=== PATIENT | female | born 1955 | race Caucasian/White ===

== ENCOUNTER 2017-12-19 17:46 | Emergency (ER) | payer OTHER, SELFPAY ==
[2017-12-19 17:48] VITALS: BP 150/56; PULSE 69; RESP 16; TEMP 36.4; O2SAT 96; BMI 38.2
--- NOTE | 2017-12-19 18:30 | RAD_ITS ---
STUDY: X-RAY - RIGHT KNEE REASON FOR EXAM: Female, 62 years old. Pain. Fall. TECHNIQUE: 4 view(s) of the knee. COMPARISON: None. FINDINGS: Normal visualized distal femur. Normal visualized proximal tibia and fibula. Normal proximal tibiofibular articulation. There is no demonstrated fracture. Normal medial femorotibial compartment. Normal lateral femorotibial compartment. There is mild degenerative arthrosis of the patellofemoral articulation. There is no demonstrated joint effusion. The soft tissue structures are unremarkable. RAD/Knee 4 or More Views IMPRESSION: No acute fracture or dislocation. Mild patellofemoral degenerative changes. Electronically Signed: Santhosh Richmond MD at 19:23 EST , Service support ,
--- NOTE | 2017-12-19 18:58 | ED.VISSUMM ---
- ER Visit Summary Date of Service: 12/19/17 Chief Complaint: Right knee pain and injury History of Present Illness: The patient is a 62 F who missed step and fell down landing with her right knee side bent behind her. She notes pain of the lateral aspect of the knee. She has been able to ambulate. She denies any other injuries. She has a history of Yefri-Danlos syndrome. Physical Examination: Afebrile vital signs are stable Gen: Well-nourished well-developed obese Head: Normocephalic atraumatic Eyes: Perrl EOMI ENT: TMs clear no rhinorrhea moist mucous membranes Neck: Supple no lymphadenopathy no JVD nontender CVS: Regular rate rhythm no murmurs normal S1-S2 Respiratory: No distress clear to auscultation bilaterally chest nontender Abdomen: Soft nontender nondistended normal bowel sounds no masses Back: Nontender Extremity: Patient is tenderness palpation of the lateral aspect of the knee. Ligaments appear stable bilaterally. There is no effusion. Extensor mechanism is intact. Negative grind test. Skin: Normal color no rash Neuro: alert orientated ?3 CN II-XII intact normal strength sensation reflexes gait cerebellar Psych: Normal affect normal mood Test Results: 4 view knee films were negative for fracture Emergency Department Course and Treatment: Patient be discharged home with supportive care. Timoteo wrap as needed. Follow-up 10-14 days if not improved Impression: 1. Right knee ligamentous sprain This note was generated with [employer] dictation software. It may contain incorrect words, spelling, and punctuation that were not noted in review of the chart prior to signing ED Disposition - Plan for ED Patient: Disposition: Home or Assisted Living Chief Complaint: Lower Extremity Injury Instructions: ED Sprain Knee Referrals: Estefani Yates MD [Primary Care Provider] - (IN 10-14 DAYS IF NOT IMPROVED)
[2017-12-19 19:18] VITALS: PULSE 86; RESP 14; O2SAT 98
== END 2017-12-19 19:19 | disposition home or self-care (01) ==
PROVIDERS: Emergency Provider Emergency Medicine; Family Provider Internal Medicine; PCP Internal Medicine
DX: S83.8X1A Sprain of other specified parts of right knee, initial encounter (principal); W18.30XA Fall on same level, unspecified, initial encounter; Y93.9 Activity, unspecified; Y92.9 Unspecified place or not applicable; Y99.9 Unspecified external cause status; E66.9 Obesity, unspecified; Q79.6 Ehlers-Danlos syndromes; K21.9 Gastro-esophageal reflux disease without esophagitis; J45.909 Unspecified asthma, uncomplicated
CPT/HCPCS: 73564; 99282

== ENCOUNTER 2020-06-01 13:37 | Outpatient (RCR) | payer OTHER, SELFPAY ==
[2019-07-26 13:13] VITALS: BMI 38.2
== END 2020-06-21 23:59 ==
LOC: NS 13:37
PROVIDERS: PCP Internal Medicine; Visit Provider Internal Medicine
DX: Z71.3 Dietary counseling and surveillance (principal); E66.09 Other obesity due to excess calories; Z68.39 Body mass index [BMI] 39.0-39.9, adult
CPT/HCPCS: 97802

== ENCOUNTER 2020-07-05 16:11 | Outpatient (RCR) | payer OTHER, SELFPAY ==
[2019-07-26 13:13] VITALS: BMI 38.2
== END 2020-07-21 23:59 ==
LOC: NS 16:11
PROVIDERS: PCP Internal Medicine; Visit Provider Internal Medicine
DX: Z71.3 Dietary counseling and surveillance (principal); E66.09 Other obesity due to excess calories; Z68.39 Body mass index [BMI] 39.0-39.9, adult
CPT/HCPCS: 97803

== ENCOUNTER 2020-08-02 15:29 | Outpatient (RCR) | payer OTHER, SELFPAY ==
[2019-07-26 13:13] VITALS: BMI 38.2
== END 2020-08-21 23:59 ==
LOC: NS 15:29
PROVIDERS: PCP Internal Medicine; Visit Provider Internal Medicine
DX: Z71.3 Dietary counseling and surveillance (principal); E66.09 Other obesity due to excess calories; Z68.39 Body mass index [BMI] 39.0-39.9, adult
CPT/HCPCS: 97803

== ENCOUNTER 2020-10-19 15:16 | Outpatient (RCR) | payer OTHER, SELFPAY ==
[2019-07-26 13:13] VITALS: BMI 38.2
== END 2020-10-21 23:59 ==
LOC: NS 15:16
PROVIDERS: PCP Internal Medicine; Visit Provider Internal Medicine
DX: Z71.3 Dietary counseling and surveillance (principal); E66.09 Other obesity due to excess calories; Z68.39 Body mass index [BMI] 39.0-39.9, adult
CPT/HCPCS: 97803

== ENCOUNTER 2020-11-15 16:29 | Outpatient (RCR) | payer OTHER, SELFPAY ==
[2019-07-26 13:13] VITALS: BMI 38.2
== END 2020-11-21 23:59 ==
LOC: NS 16:29
PROVIDERS: PCP Internal Medicine; Visit Provider Internal Medicine
DX: Z71.3 Dietary counseling and surveillance (principal); E66.09 Other obesity due to excess calories; Z68.39 Body mass index [BMI] 39.0-39.9, adult
CPT/HCPCS: 97803

== ENCOUNTER → 2020-11-19 15:06 | Outpatient (CLI) | payer OTHER, SELFPAY ==
[2019-07-26 13:13] VITALS: BMI 38.2
[2020-11-19 15:47] LABS: D-Dimer Quantitative (DVT/PE) 0.33 FEU/ug/m (0.27-0.49)
== END ==
PROVIDERS: PCP Internal Medicine; Referring Provider Nurse Practitioner; Visit Provider Nurse Practitioner
DX: R06.02 Shortness of breath (principal)
CPT/HCPCS: 85379

== ENCOUNTER 2020-12-21 17:08 | Outpatient (RCR) | payer OTHER, SELFPAY ==
[2019-07-26 13:13] VITALS: BMI 38.2
== END 2021-01-19 23:59 ==
LOC: NS 17:08
PROVIDERS: PCP Internal Medicine; Visit Provider Internal Medicine
DX: Z71.3 Dietary counseling and surveillance (principal); E66.09 Other obesity due to excess calories; Z68.39 Body mass index [BMI] 39.0-39.9, adult
CPT/HCPCS: 97803

== ENCOUNTER 2021-02-07 15:16 | Outpatient (RCR) | payer OTHER, SELFPAY ==
[2019-07-26 13:13] VITALS: BMI 38.2
== END 2021-02-18 23:59 ==
LOC: NS 15:16
PROVIDERS: PCP Internal Medicine; Visit Provider Internal Medicine
DX: Z71.3 Dietary counseling and surveillance (principal); E66.09 Other obesity due to excess calories; Z68.39 Body mass index [BMI] 39.0-39.9, adult
CPT/HCPCS: 97803

== ENCOUNTER 2021-04-18 08:45 | Outpatient (RCR) | payer OTHER, SELFPAY ==
[2019-07-26 13:13] VITALS: BMI 38.2
== END 2021-04-20 23:59 ==
LOC: NS 08:45
PROVIDERS: PCP Internal Medicine; Visit Provider Internal Medicine
DX: Z71.3 Dietary counseling and surveillance (principal); E66.09 Other obesity due to excess calories; Z68.39 Body mass index [BMI] 39.0-39.9, adult
CPT/HCPCS: 97803

== ENCOUNTER 2021-05-09 10:37 | Outpatient (RCR) | payer OTHER, SELFPAY ==
[2019-07-26 13:13] VITALS: BMI 38.2
== END 2021-05-21 23:59 ==
LOC: NS 10:37
PROVIDERS: PCP Internal Medicine; Visit Provider Internal Medicine
DX: Z71.3 Dietary counseling and surveillance (principal); E66.09 Other obesity due to excess calories; Z68.39 Body mass index [BMI] 39.0-39.9, adult
CPT/HCPCS: 97803

== ENCOUNTER 2021-06-07 16:38 | Outpatient (RCR) | payer OTHER, SELFPAY ==
[2019-07-26 13:13] VITALS: BMI 38.2
== END 2021-06-21 23:59 ==
LOC: NS 16:38
PROVIDERS: PCP Internal Medicine; Visit Provider Internal Medicine
DX: Z71.3 Dietary counseling and surveillance (principal); E66.09 Other obesity due to excess calories; Z68.39 Body mass index [BMI] 39.0-39.9, adult
CPT/HCPCS: 97803

== ENCOUNTER 2022-05-30 06:37 | Outpatient (RCR) | payer OTHER, SELFPAY ==
--- NOTE | 2022-05-30 06:41 | PR.ITP_ITS ---
General Information2 - General Information Admitting Diagnosis: Post COVID Syndrome Secondary Diagnosis: Persistent Asthma, unspecified severity - Personal Learning Style/Barriers Personal Learning Style:: Written Barriers to Learning: Vision impaired Stage of change r/t lifestyle modifications: Contemplation Educational Classes IN: Breathing Retraining: Initial Assessment, Energy Conservation: Initial Assessment - Education/Goals Individual Counseling: Initial Assessment: Overweight/Obesity - Refer to [facility] [place] Patient Goals: Increase muscle strength: Initial Assessment, Experience less dyspnea: Initial Assessment, Improve energy level: Initial Assessment, Improve the ability to cope with ADLs: Initial Assessment, Improve my quality of life: Initial Assessment Exercise - Initial Assessment - Visit Date of Eval: 05/30/22 Session Number:: 0 - Pre-outpatient respiratory service evaluation - Problem/Goals Problems: Deconditioning Goals:: Aerobic exercise 30-60 mins x 12 weeks [36 sessions] - Physician Prescribed Exercise Modalities: Treadmill, NuStep, Lateral [place] Frequency (days/week): 3 Duration (Minutes):: 30-45 Intensity: 60-80% of age predicted maximum heart rate reserve Current METSs:: 2.0 Target HR:: 131 - THHR 100-131 Resting Blood Pressure: 130/80 EKG Type: Sinus Rhythm - Plan Plan and Plan to Review:: Benefits of exercise, Core components of exercise, How to measure dyspnea level, How to monitor dyspnea level, Exercise intensity, Exercise safety guideline, Home exercise guidelines, Chiara: 3-4/11-13 Nutrition/Wt Mgmt - Initial - Visit Date of Eval: 05/30/22 Session Number:: 0 - Pre-outpatient respiratory service evaluation - Problems/Goals Problems: Overweight - Weight Management Knowledge Deficit Management of:: Overweight Admit Height:: 5 ft 4.5 in Admit Weight:: 237 lb Admit BMI:: 40.0 - Intervention Referral to dietitian:: Yes Will attend diet classes:: Yes Intervention/Plan: Instruct on ideal BMI & set weight loss goal w/patient, Assist pt to ID & incorporate diet changes for weight loss by S9, Refer to Structured Weight Loss program as appropriate, Encourage goal of using 250- 300dcal per session for weight loss - Plan Nutrition Plan: Yes Nutrition education class:, Yes Weight control education class: Psychosocial - Initial Assess - Visit Date of Eval: 05/30/22 Session Number:: 0 - Pre-outpatient respiratory service evaluation - Problems/Goals Self-reported stressors: Recent Illness - Psychosocial Test Tool Used:: Pulmonary QOL, PHQ-9 Questionnaire - Referral to Behavioral Health PS - Interventions: Yes Attend Stress Management Classes, No Referral to Behavioral Health if PHQ-9 score >9:, No Referral to [facility], No Referral to Physician if PHQ-9 if score is 5-9: - Intervention/Plan: See List Interventions/Plan:: Assess stressors,coping strategies & signs of derpression on admission, Instruct/assist pt to develop coping & personal stress Mgt strategies, Instruct patient to recognize signs & symptoms of depression, Instruct patient to recog Oxygen & Oxygen Titration Init - Visit Date of Eval: 05/30/22 Session Number:: 0 - Pre-outpatient respiratory service evaluation - Initial Assessment Oxygen on Admission: CPAP/BIPAP SpO2:: 97 FiO2:: 21 Patient Reports:: Non-productive cough - persistent dry cough since COVID - Plans Plan: Monitor SpO2 rest & with exercise Reviewed prescribed medications:: Purpose, Schedule, Side effects, Importance of compliance Instruct correct technique/timing & care:: MDI Bronchial Hygiene Plan: Hydration, Hand hygiene, Signs/symptoms to report: Core Components - Initial - Visit Date of Eval: 05/30/22 Session Number:: 0 - Pre-outpatient respiratory service evaluation - Hypertension [place] [employer] Hypertension Guidelines: [place] [employer] Hypertension Guidelines. Normal BP Less than 120/80. Elevated BP 120/80. Hypertension Stage 1: BP 130-139/80-89. Hypertesnion Stage 2: BP 140 or higher/90 or higher. Hypertension Crisis: BP higher than 180/120 Blood Pressure: 130/80 Low Sodium diet: No Outcomes/Goals: Able to verbalize/achieve optimal blood pressure <130/80, Incorporates diet changes & exercise for blood pressure control by DC - Exacerbation Mgmt & Airway Clearance Plan: Monitor SpO2 rest & with exercise Bronchial Hygiene Plan: Controlled cough, Hydration, Hand hygiene, Signs/symptoms to report: - Medication Interventions/plans: Review medication list w/patient every two weeks Medications: Yes MDI, Yes DPI, Yes Spacer Reviewed prescribed medications:: Purpose, Schedule, Side effects, Importance of compliance - Diabetes Diabetes:: No Core Components - 30 DAYS Core Components - 60 DAYS Core Components - 90 DAYS Core Components - Final Patient Health Questionnaire Initial Assessment 1. Little interest or pleasure in doing things: Not at all 2. Feeling down, depressed, or hopeless: Not at all 3. Trouble falling or staying asleep, or sleeping too much: Several days 4. Feeling tired or having little energy: Nearly every day 5. Poor appetite or overeating: Several days 6. Feeling bad about yourself -- or that you are a failure or have let yourself or your family down: Not at all 7. Trouble concentrating on things, such as reading the newspaper or watching television: Not at all 8. Moving or speaking so slowly that other people could have noticed. Or the opposite - being so fidgety or restless that you have been moving around a lot more than usual: Several days 9. Thoughts that you would be better off , or of hurting yourself in some way: Not at all How difficult have these problems made it for you to do your work, take care of things at home, or get along with other people?: Somewhat difficult Total Score: 6 Knowledge Questionaire (BCKQ) - Information Information: [place] COPD Knowledge Questionnaire (BCKQ) This questionnaire is designed to find out what you know about your lung problem. It should be completed without help form anyone else. This usually takes between 10 and 20 minutes. Your answers will help us to find out what information you need to help you to understand and manage your lung condition. Raymond the tanana which you think is the correct answer. Self-Efficacy Initial Assessment We would like to know how confident you are in doing certain activities. Please select your confidence level for:: Select your confidence level for the following using the scale 1-10 where 1 is not at all confident and 10 is totally confident. Your score is the average of all 6 responses. Fatigue: How confident are you that you can keep the fatigue caused by your di sease from interfering with the things you want to do? Select Number: 4 Physical Discomfort or Pain: How confident are you that you can keep the physi guillermina discomfort or pain of your disease from interfering with the things you want to do? Select Number: 4 Emotional Distress: How confident are you that you can keep the emotional distress caused by your disease from interfering with the things you want to do? Select Number: 6 Other Symptoms or Health Problems: How confident are you that you can keep other symptoms or health problems from interfering with the things you want to do? Select Number: 4 Different Tasks and Activities: How confident are you that you can do the different tasks and activities needed to manage your health condition so as to reduce your need to see a doctor? Select Number: 7 Medication: How confident are you that you can do things other than just taking medication to reduce how much your illness affects your everyday life? Select Number: 10 Total Score:: 5 Nutrition Survey - Nutrition Survey Initial Have you lost >10 lbs over the past 2 months without trying?: No Are you following a special diet at home for diabetes, low fat, or low salt?: Yes Are you interested in meeting with a dietitian for help understanding your diet?: No Do you eat less than 3 meals a day?: No Do you eat fatty meats (page, sausage, ribs, etc), fried foods, desserts, large amounts of salad dressings, margarine, butter, or cheese most days?: No Do you have food allergies? [Enter types in comment field]: Yes - strawberries, bananas, cantelope Do you eat in restaurants more than 3 times a week?: No Do you season food with salt, seasoning salt, or garlic salt?: No - Mrs. Dash Do you used canned, boxed, frozen meals, or soups, seasoning packets?: No Total Score:: 2
--- NOTE | 2022-05-30 06:41 | PR.HP_ITS ---
History of Present Illness Arrival date:: 05/30/22 Arrival time:: 06:30 Date of Referral:: 05/22/22 Date of Evaluation: 05/30/22 Referring Physician: Dr. Danette Marquez @ [facility] Primary Diagnosis: Post Covid-19 Syndrome History of Present Illness: COVID !( in August 2020 has never fully recovered, decreased level of exertional tolerance, persistent cough, fatigue. mMRC Breathless Scale: When is the patient short of breath? Y/N Grade: Description of Breathlessness: 0 I only get breathless with strenuous exercise. 1 I get short of breath when hurrying on level ground or walking up a slight hill. 2 On level ground, I walk slower than people of the same age because of breathless, or have to stop for breath when walking at my own pace. 3 I stop for breath after walking 100 yards or after a few minutes on level ground. 4 I am too breathless to leave the house or I am breathless when dressing. Respiratory Problems: Yes: Wheezing, Dizziness Hx of Sleep Apnea: Yes Do you snore loudly (louder than talking or can be heard through closed doors)?: Yes Has anyone observed you stop breathing during sleep?: Yes History of Hypertension (for STOP score): Yes - Has CPAP at home for TRINITY Home Medications: Home Medications levothyroxine 100 mcg tablet 100 mcg PO DAILY 06/09/17 liothyronine 5 mcg tablet 1 tab PO DAILY 06/09/17 mometasone 50 mcg/actuation nasal spray 1 dose DAILY 06/09/17 hydroxychloroquine 200 mg tablet 300 mg PO DAILY 09/25/17 levalbuterol HCl 0.63 mg/3 mL solution for nebulization (Xopenex) 0.63 mg IH PRN PRN Sob &/Or Wheezing 12/19/17 azelastine-fluticasone 137 mcg-50 mcg/spray nasal spray 1 spray intranasal BID 05/30/22 budesonide-formoterol HFA 80 mcg-4.5 mcg/actuation aerosol inhaler (Symbicort) 2 puff inhalation BID 05/30/22 cholecalciferol (vitamin D3) 50 mcg (2,000 unit) tablet 50 mcg PO DAILY 05/30/22 clobetasol 0.05 % topical gel 1 applic topical BID 05/30/22 diclofenac sodium 1 % topical gel (Voltaren Arthritis Pain) ea topical PRN PRN Pain 05/30/22 estradiol 0.01% (0.1 mg/gram) vaginal cream (Estrace) 1 appful vaginal DAILY 05/30/22 hydroxychloroquine 200 mg tablet (Plaquenil) 300 mg PO BID 05/30/22 levalbuterol tartrate 45 mcg/actuation aerosol inhaler (Xopenex HFA) 2 inh inhalation Q6H 05/30/22 levothyroxine 88 mcg tablet (Synthroid) 88 mcg PO DAILY 05/30/22 liothyronine 5 mcg tablet (Cytomel) 5 mcg PO DAILY 05/30/22 melatonin 1 mg tablet 2 mg PO QHS 05/30/22 Allergies/Adverse Reactions: Allergies amoxicillin Allergy (Verified 12/19/17 18:03) Hives latex Allergy (Verified 12/19/17 18:03) Anaphylaxis nitrofurantoin [From Macrodantin] Allergy (Verified 12/19/17 18:03) Hives Sulfa (Sulfonamide Antibiotics) Allergy (Verified 12/19/17 18:03) Hives epinephrine Adverse Reaction (Verified 12/19/17 18:03) Other TACHYPNEA Iodinated Contrast Media [DYEE] Adverse Reaction (Verified 12/19/17 18:03) Vomiting Medical Utilization Do you use a peak flow meter at home?: No Do you use a spacer device with your inhalers?: Yes Number of hospital visits in the last year?: 0 Number of emergency room visits in the last year?: 0 Do you see your physician on a regular schedule?: Yes How often?: 6 months Rheumatoidologist, Pulmonary 6 mo Advanced Directives - Advanced Directives Power of Patrol Judge: No Living Will: No Advance Directives Information Provided: Yes Advance Directives on File: No DNR Order?:: No - MOLST See MOLST form: No Past Medical History - Covid-19 Screening Fever: No Unexplained muscle aches: No Current respiratory symptoms: No - consistent dry cough Upper respiratory infections symptoms: No Gastro-intestinal symptoms: No Xqr-Fagl-Gvstea symptoms: No Has tested positive for COVID-19 in last 30 days: No Date of testin05/30/22 - All Vaccines and 2 boosters Had contact w/person w/symptoms or Covid-19 (+) last 14 days: No Has High Risk Exposures ID'd by Health dept/Inf Control team: No 65 years or older:: Yes Lives in Assisted Living facility:: No Has a chronic lung disease or moderate to severe asthma:: No Has a serious heart condition:: No Immunocompromised:: No Severely obese (Body Mass Index of 40 or higher):: Yes Diabetic:: No Has chronic kidney disease undergoing dialysis:: No Has liver disease:: No Medical History: Past Medical History (Last Updated 05/30/22 @ 07:10 by Jose Raul Garcia CRT, [employer]PERVIS[employer], BS) Asthma J45.909 unspecified severity, unspecified whether complicated Carpal tunnel syndrome of left wrist G56.02 Cataract (lens) fragments in eye following cataract surgery H59.029 left Chest tightness R07.89 COVID-19 Onset Date: ~08/23/20 U07.1 Decreased activity tolerance R68.89 Exertional dyspnea R06.09 TRINITY (obstructive sleep apnea) G47.33 Post-COVID syndrome U09.9 Recurrent dry cough R05.8 Severe persistent asthma J45.50 Wheezing R06.2 variable Surgical History: Past Surgical History (Last Updated 05/30/22 @ 07:05 by Jose Raul Garcia, RADHA, WO[employer] CRE[employer] SUPERVISOR, BS) Hx of cholecystectomy Z90.49 S/P arthroscopic knee surgery Z98.890 left knee - Current/ Previous Services Pulmonary Rehab:: No Social History - Smoking History Smoking Status: Never smoker Hx Tobacco Use: No Hx Smoking Exposure: No - Alcohol Use Alcohol Usage: No - Substance Abuse Hx Substance Use: No - Occupation 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 - Hobbies, Recreation, Social Activities Hobbies: Sewing - Scrapbooking, creul needle work, Reading Recreational Activities: I am able to engage in most, but not all activities - with great difficulty, a lot of resting, very limited Functioning ADL/IADL - Current Ability Current Ability: Independent Self-Care (e.g.,grooming, dressing, & bathing), Independent Ambulation, Independent Transfer, Independent Household tasks (e.g., light meal prep, laundry, shopping) - Pt Functioning Prior to Problem Prior Functioning: Self-Care (e.g.,grooming, dressing, & bathing): Independent, Ambulation: Independent, Transfer: Independent, Household tasks (e.g., light meal prep, laundry, shopping): Independent Social Environment - Status Marital Status: - Current Living Arrangements Living Environment:: Alone - Children How many children do you have?: 1 Do any of your children live nearby?: Yes - Safety Do you feel safe in your surroundings?: Yes - Assistance Do you need any assistance at home?: no Review of Systems Review of Systems: Right click = Denies (Slash). Left click = Reports ([place]) Respiratory: Reports: Cough - dry persitent, SOB upon Exertion, Wheezing - variable, Appetite, Normal - nausea, lost of appetite, Dizziness/Lightheadedness, Fatigue, Sleep, Normal. Denies: SOB at Rest, Sexual changes Is Patient Pain Free?: No Pain Location: other - muscle and joint pain from rheumatoid arthritis Pain Level: 02/28 Risk Factor Assessment - Vital Signs Temperature: 97.9 F Pulse Rate: 88 Pulse Rhythm: Regular Pulse Ox: 97 Blood Pressure: 136/80 - Obesity Height: 5 ft 4.5 in Weight:: 237 lb Weight in Pounds: 237.0 lbs Weight Source: Estimated by Patient Body Mass Index (BMI): 40.0 Nutritional Referral for Obesity: Yes - Physical Activity Physical Inactivity: Physically demanding job Motivation - Motivation to Participate On a scale of 1 to 10, how prepared are you to commit to attending program?: 10 What do you see as barriers to successfully being able to complete the program?: rheumatoid arthritis pain joints, right foot tendon issues What do you see as the benefits of succesfully completing the program? In other words, what do you hope to get out of participating in the program?: hopefully being able to increase tolerance, stronger, feel better Are there issues you are dealing with that will interfere with completing the program?: rheumatoid arthritis, issue with right foot. Do you have a spouse or signficant other, family or friends who will help support you to complete the program?: yes
[2022-05-30 07:17] VITALS: BP 136/80; PULSE 88; TEMP 36.6; O2SAT 97; BMI 40.0
[2022-05-30 07:55] VITALS: BP 130/80; O2SAT 97; BMI 40.0
== END 2022-06-21 23:59 ==
LOC: PR 06:37
PROVIDERS: PCP Internal Medicine
DX: Z00.00 Encounter for general adult medical examination without abnormal findings
CPT/HCPCS: 97150; G0239

== ENCOUNTER 2022-06-21 15:45 | Outpatient (RCR) | payer OTHER, SELFPAY | END 2022-06-21 23:59 | LOC: PR 15:45 | PROVIDERS: PCP Internal Medicine | DX: U09.9 Post COVID-19 condition, unspecified (principal) | CPT/HCPCS: 97150; G0239 ==

== ENCOUNTER 2022-07-13 15:29 | Outpatient (RCR) | payer OTHER, SELFPAY | END 2022-07-21 23:59 | LOC: NS 15:29 | PROVIDERS: PCP Internal Medicine; Visit Provider Internal Medicine | DX: Z71.3 Dietary counseling and surveillance (principal); E66.9 Obesity, unspecified | CPT/HCPCS: 97802 ==

== ENCOUNTER 2022-07-21 15:45 | Outpatient (RCR) | payer OTHER, SELFPAY | END 2022-07-21 23:59 | LOC: PR 15:45 | PROVIDERS: PCP Internal Medicine | DX: U09.9 Post COVID-19 condition, unspecified (principal) | CPT/HCPCS: 97150; G0239 ==

== ENCOUNTER 2022-08-07 16:49 | Outpatient (RCR) | payer OTHER, SELFPAY ==
[2022-07-31 09:57] VITALS: BMI 41.5
== END 2022-08-21 23:59 ==
LOC: NS 16:49
PROVIDERS: PCP Internal Medicine; Visit Provider Internal Medicine
DX: Z71.3 Dietary counseling and surveillance (principal); E66.9 Obesity, unspecified
CPT/HCPCS: 97803

== ENCOUNTER 2022-08-21 15:45 | Outpatient (RCR) | payer OTHER, SELFPAY ==
--- NOTE | 2022-07-31 09:50 | PR.ITP_ITS ---
Exercise - 60-Day Assessment - Visit Date of Eval: 07/31/22 Session Number:: 21 - Physician Prescribed Exercise Modalities: Treadmill, NuStep, SciFit Intensity: 60-80% of age predicted maximum heart rate reserve Aerobic Exercise [30-60 min 3-7x/week]:: Progressing Current METSs: 3.5 Target HR:: 131 - THRR 100-131 Resting Blood Pressure: 128/60 Maximum Exercise Blood Pressure: 140/82 EKG Type: NSR Current Minutes of Exercise: 36:32 - Home Exercise Home Exercise:: Yes Nutrition/Wt Mgmt - 60-Day - Visit Date of Eval: 07/31/22 Session Number:: 23 - Weight Management Height: 5 ft 4.5 in Weight:: 246 lb BMI: 41.5 Weight Goals Progress:: Referral to structured weight management program Psychosocial - 60-Day - Visit Date of Eval: 07/31/22 Session Number:: 23 - Problems/Goals History of Emotional Disorders: Anxious Depression:: Self report - Psychosocial Test Tool Used:: PHQ-9 Questionnaire - Referral to Behavioral Health PS - Interventions: Yes Attend Stress Management Classes, No Referral to Behavioral Health if PHQ-9 score >9:, No Referral to [facility], No Referral to Physician if PHQ-9 if score is 5-9: - Plan Interventions/Plan:: Assess stressors,coping strategies & signs of derpression on admission, Instruct/assist pt to develop coping & personal stress Mgt strategies, Instruct patient to recognize signs & symptoms of depression, Instruct patient to recog Oxygen & Oxygen Titration 60D - Visit Date of Eval: 07/31/22 Session Number:: 23 - Reassessment Reassessment- 60 Days: Demonstrate knowledge of O2 Rx at rest & w/exercise Breath Sounds:: Clear, Diminished SpO2:: 95 Core Components - Initial Core Components - 30 DAYS Core Components - 60 DAYS - Visit Date of Eval: 07/31/22 Session Number:: 23 - Hypertension Hypertension Diagnosis:: Hypertension ICD-10 I10 Resting Blood Pressure:: 128/60 [place] [employer] Hypertension Guidelines: [place] [employer] Hypertension Guidelines. Normal BP Less than 120/80. Elevated BP 120/80. Hypertension Stage 1: BP 130-139/80-89. Hypertesnion Stage 2: BP 140 or higher/90 or higher. Hypertension Crisis: BP higher than 180/120 Peak Exercise Blood Pressure:: 140/82 Change in medication: Yes Outcomes/Goals: Able to verbalize/achieve optimal blood pressure <130/80, Incorporates diet changes & exercise for blood pressure control by DC Interventions/plan: Instruct on optimal blood pressure, hypertension & medications, Instruct on effects of sodium, alcohol, stress, exercise &hypertension 60 day Reassessments:: Met - Tobacco - 60-Day Tobacco Program Goals: Complete smoking cessation. Attend education classes. Improve Knowledge Test score Tobacco Use: Non-smoker - Exacerbation Mgmt & Airway Clearance Bronchial Hygiene Plan: Yes Pt demo correct for device - Instructed on SMI, Acapella and P-Flex devices, Yes Pt demo correct for improved hydration, Yes Pt demo correct for hand hygiene, Yes Pt demo correct for verbalize when to call MD - Medication Medication list reviewed:: Yes Taking medications 100% of the time:: Met Medication reassessment: Yes Pt demonstrates correct technique timing for MDI, Yes Pt demonstrates correct technique timing for spacer - Diabetes Diabetes:: No Core Components - 90 DAYS Core Components - Final Patient Health Questionnaire 60-Day Re-eval Assessment 1. Little interest or pleasure in doing things: Not at all 2. Feeling down, depressed, or hopeless: Not at all 3. Trouble falling or staying asleep, or sleeping too much: Several days 4. Feeling tired or having little energy: More than half the days 5. Poor appetite or overeating: Several days 6. Feeling bad about yourself -- or that you are a failure or have let yourself or your family down: Not at all 7. Trouble concentrating on things, such as reading the newspaper or watching television: Not at all 8. Moving or speaking so slowly that other people could have noticed. Or the opposite - being so fidgety or restless that you have been moving around a lot more than usual: Not at all 9. Thoughts that you would be better off , or of hurting yourself in some way: Not at all How difficult have these problems made it for you to do your work, take care of things at home, or get along with other people?: Not difficult at all Total Score: 4 Knowledge Questionaire (BCKQ) - Information Information: [place] COPD Knowledge Questionnaire (BCKQ) This questionnaire is designed to find out what you know about your lung problem. It should be completed without help form anyone else. This usually take s between 10 and 20 minutes. Your answers will help us to find out what information you need to help you to understand and manage your lung condition. Raymond the [place] which you think is the correct answer. Self-Efficacy 60-Day Re-eval Assessment We would like to know how confident you are in doing certain activities. Please select your confidence level for:: Select your confidence level for the following using the scale 1-10 where 1 is not at all confident and 10 is totally confident. Your score is the average of all 6 responses. Fatigue: How confident are you that you can keep the fatigue caused by your disease from interfering with the things you want to do? Select Number: 5 Physical Discomfort or Pain: How confident are you that you can keep the physical discomfort or pain of your disease from interfering with the things you want to do? Select Number: 5 Emotional Distress: How confident are you that you can keep the emotional distress caused by your disease from interfering with the things you want to do? Select Number: 7 Other Symptoms or Health Problems: How confident are you that you can keep other symptoms or health problems from interfering with the things you want to do? Select Number: 6 Different Tasks and Activities: How confident are you that you can do the different tasks and activities needed to manage your health condition so as to reduce your need to see a doctor? Select Number: 8 Medication: How confident are you that you can do things other than just taking medication to reduce how much your illness affects your everyday life? Select Number: 10 Total Score:: 6 Nutrition Survey
[2022-07-31 09:57] VITALS: BP 128/60; BP 140/82; O2SAT 95; BMI 41.5
== END 2022-08-21 23:59 ==
LOC: PR 15:45
PROVIDERS: PCP Internal Medicine
DX: U09.9 Post COVID-19 condition, unspecified (principal)
CPT/HCPCS: 97150; G0239

== ENCOUNTER 2022-09-01 15:45 | Outpatient (RCR) | payer OTHER, SELFPAY ==
[2022-07-31 09:57] VITALS: BMI 41.5
[2022-08-22 00:32] VITALS: BP 128/60; BP 140/82
--- NOTE | 2022-08-30 11:23 | PCM.PR.TP ---
Exercise - 90-Day Assessment - Visit Date of Eval: 08/30/22 Session Number:: 33 - Physician Prescribed Exercise Modalities: Treadmill, NuStep, SciFit Frequency (days/week): 3 Duration (minutes): 37:36 Intensity: 60-80% of age predicted maximum heart rate reserve Aerobic Exercise [30-60 min 3-7x/week]:: Progressing Chiara-13 Current METSs:: 3.5 Target HR:: 131 - THRR 100-131 Current RPD:: 3 Maximum Exercise HR:: 94 Resting Blood Pressure: 120/64 Maximum Exercise Blood Pressure: 140/80 Minimum SpO2 with exercise: 93 EKG Type: NSR to sinus tach with occasional PACs - Home Exercise Home Exercise?: Yes Mode: Walking Frequency:: daily Time (minutes):: 30 Nutrition/Wt Mgmt - 90-Day - Visit Date of Eval: 08/30/22 Session Number:: 33 - Weight Management Height: 5 ft 4.5 in Weight:: 244 lb 8 oz - down from 246 BMI: 41.3 Weight Goals Progress:: Progressing Psychosocial - 90-Day - Visit Date of Eval: 08/30/22 Session Number:: 33 - Problems/Goals History of Emotional Disorders: None - Psychosocial Test Tool Used:: PHQ-9 Questionnaire - Referral to Behavioral Health PS - Interventions: Yes Attend Stress Management Classes, No Referral to Behavioral Health if PHQ-9 score >9:, No Referral to [facility], No Referral to Physician if PHQ-9 if score is 5-9: - Plan Interventions/Plan:: Assess stressors,coping strategies & signs of derpression on admission, Instruct/assist pt to develop coping & personal stress Mgt strategies, Instruct patient to recognize signs & symptoms of depression, Instruct patient to recog Oxygen & Oxygen Titration 90D - Visit Date of Eval: 08/30/22 Session Number:: 33 - Reassessment Oxygen & Oxygen Titration 90 days: None Breath Sounds:: Clear, Diminished SpO2:: 95 - room air Core Components - Initial Core Components - 30 DAYS Core Components - 60 DAYS Core Components - 90 DAYS - Visit Date of Eval: 08/30/22 Session Number:: 33 - Hypertension Hypertension Diagnosis:: Hypertension ICD-10 I10 Resting Blood Pressure:: 120/68 [place] [employer] Hypertension Guidelines: [place] [employer] Hypertension Guidelines. Normal BP Less than 120/80. Elevated BP 120/80. Hypertension Stage 1: BP 130-139/80-89. Hypertesnion Stage 2: BP 140 or higher/90 or higher. Hypertension Crisis: BP higher than 180/120 Peak Exercise Blood Pressure:: 140/80 Outcomes/Goals: Able to verbalize/achieve optimal blood pressure <130/80, Incorporates diet changes & exercise for blood pressure control by DC Interventions/plan: Instruct on optimal blood pressure, hypertension & medications, Instruct on effects of sodium, alcohol, stress, exercise &hypertension 90 day Reassessments:: Met - Tobacco - 90-Day Tobacco Program Goals: Complete smoking cessation. Attend education classes. Improve Knowledge Test score Tobacco Use: Non-smoker - Medication Medication list reviewed:: Yes Taking medications 100% of the time:: Met Medication reassessment: Yes Pt demonstrates correct technique timing for MDI, Yes Pt demonstrates correct technique timing for DPI, Yes Pt demonstrates correct technique timing for spacer - Diabetes Diabetes:: No - Heart Failure Documenting weight daily: Yes - encouraged to continue weight loss program Core Components - Final Patient Health Questionnaire 90-Day Re-eval Assessment 1. Little interest or pleasure in doing things: Not at all 2. Feeling down, depressed, or hopeless: Not at all 3. Trouble falling or staying asleep, or sleeping too much: Several days 4. Feeling tired or having little energy: More than half the days 5. Poor appetite or overeating: Several days 6. Feeling bad about yourself -- or that you are a failure or have let yourself or your family down: Not at all 7. Trouble concentrating on things, such as reading the newspaper or watching television: Not at all 8. Moving or speaking so slowly that other people could have noticed. Or the opposite - being so fidgety or restless that you have been moving around a lot more than usual: Not at all 9. Thoughts that you would be better off , or of hurting yourself in some way: Not at all How difficult have these problems made it for you to do your work, take care of things at home, or get along with other people?: Somewhat difficult Total Score: 4 Knowledge Questionaire (BCKQ) - Information Information: [place] COPD Knowledge Questionnaire (BCKQ) This questionnaire is designed to find out what you know about your lung problem. It should be completed without help form anyone else. This usually takes between 10 and 20 minutes. Your answers will help us to find out what information you need to help you to understand and manage your lung condition. Raymond the [place] which you think is the correct answer. Self-Efficacy 90-Day Re-eval Assessment We would like to know how confident you are in doing certain activities. Please select your confidence level for:: Select your confidence level for the following using the scale 1-10 where 1 is not at all confident and 10 is totally confident. Your score is the average of all 6 responses. Fatigue: How confident are you that you can keep the fatigue caused by your disease from interfering with the things you want to do? Select Number: 6 Physical Discomfort or Pain: How confident are you that you can keep the physical discomfort or pain of your disease from interfering with the things you want to do? Select Number: 6 Emotional Distress: How confident are you that you can keep the emotional distress caused by your disease from interfering with the things you want to do? Select Number: 8 Other Symptoms or Health Problems: How confident are you that you can keep other symptoms or health problems from interfering with the things you want to do? Select Number: 8 Different Tasks and Activities: How confident are you that you can do the different tasks and activities needed to manage your health condition so as to reduce your need to see a doctor? Select Number: 8 Medication: How confident are you that you can do things other than just taking medication to reduce how much your illness affects your everyday life? Select Number: 10 Total Score:: 7 Nutrition Survey
[2022-08-30 11:30] VITALS: BP 120/64; BP 120/68; BP 140/80; O2SAT 95; BMI 41.3
== END 2022-09-20 23:59 ==
LOC: PR 15:45
PROVIDERS: PCP Internal Medicine
DX: U09.9 Post COVID-19 condition, unspecified (principal)
CPT/HCPCS: 97150; G0239

== ENCOUNTER 2022-09-05 15:39 | Outpatient (RCR) | payer OTHER, SELFPAY ==
[2022-07-31 09:57] VITALS: BMI 41.5
[2022-08-30 11:30] VITALS: BMI 41.3
== END 2022-09-20 23:59 ==
LOC: NS 15:39
PROVIDERS: PCP Internal Medicine; Visit Provider Internal Medicine
DX: Z71.3 Dietary counseling and surveillance (principal); E66.9 Obesity, unspecified; Z68.35 Body mass index [BMI] 35.0-35.9, adult
CPT/HCPCS: 97803

== ENCOUNTER 2022-09-25 15:46 | Outpatient (RCR) | payer OTHER, SELFPAY ==
[2022-08-30 11:30] VITALS: BMI 41.3
== END 2022-10-21 23:59 ==
LOC: NS 15:46
PROVIDERS: PCP Internal Medicine; Referring Provider Internal Medicine; Visit Provider Internal Medicine
DX: Z71.3 Dietary counseling and surveillance (principal); E66.9 Obesity, unspecified
CPT/HCPCS: 97803

== ENCOUNTER 2022-10-30 15:31 | Outpatient (RCR) | payer OTHER, SELFPAY ==
[2022-08-30 11:30] VITALS: BMI 41.3
== END 2022-11-21 23:59 ==
LOC: NS 15:31
PROVIDERS: PCP Internal Medicine; Referring Provider Internal Medicine; Visit Provider Internal Medicine
DX: Z71.3 Dietary counseling and surveillance (principal); E66.9 Obesity, unspecified; Z68.41 Body mass index [BMI] 40.0-44.9, adult
CPT/HCPCS: 97803

== ENCOUNTER 2022-12-20 15:29 | Outpatient (RCR) | payer OTHER, SELFPAY ==
[2022-08-30 11:30] VITALS: BMI 41.3
== END 2023-01-19 23:59 ==
LOC: NS 15:29
PROVIDERS: PCP Internal Medicine; Referring Provider Internal Medicine; Visit Provider Internal Medicine
DX: Z71.3 Dietary counseling and surveillance (principal); E66.9 Obesity, unspecified
CPT/HCPCS: 97803

== ENCOUNTER 2023-02-05 15:37 | Outpatient (RCR) | payer OTHER, SELFPAY ==
[2022-08-30 11:30] VITALS: BMI 41.3
== END 2023-02-18 23:59 ==
LOC: NS 15:37
PROVIDERS: PCP Internal Medicine; Referring Provider Internal Medicine; Visit Provider Internal Medicine
DX: Z71.3 Dietary counseling and surveillance (principal); E66.9 Obesity, unspecified
CPT/HCPCS: 97803

== ENCOUNTER 2023-03-12 15:39 | Outpatient (RCR) | payer OTHER, SELFPAY ==
[2022-08-30 11:30] VITALS: BMI 41.3
== END 2023-03-21 23:59 ==
LOC: NS 15:39
PROVIDERS: PCP Internal Medicine; Referring Provider Internal Medicine; Visit Provider Internal Medicine
DX: Z71.3 Dietary counseling and surveillance (principal); E66.9 Obesity, unspecified
CPT/HCPCS: 97803